=== PATIENT | male | born 1945 | race Caucasian/White ===

== ENCOUNTER 2016-07-03 22:01 | Inpatient (IN) | payer MEDICARE ==
[~2016-07-03] VITALS: Ht 170.2 cm; Wt 99.8 kg
[2016-07-03 22:49] LABS: HEMOGLOBIN 13.3 gm/dl (14.0-17.5); RED BLOOD COUNT 4.78 M/UL (4.20-5.50); WHITE BLOOD COUNT 7.1 K/UL (4.5-11.0)
[2016-07-03 23:12] LABS: BUN/CREATININE RATIO 13 (0-10)
[2016-07-04] MEDS ORDERED: ZYRTEC10 MG PO (01:54)
[2016-07-04] MEDS ORDERED: SINGULAIR10 MG PO (01:54)
[2016-07-04] MEDS ORDERED: TIAZAC240 MG PO (01:54)
[2016-07-04] MEDS ORDERED: VALSARTAN-HCTZ1 EAC2 PO (01:55)
[2016-07-04] MEDS ORDERED: CATAPRES 0.1MG0.1 MG PO (01:55)
[2016-07-04] MEDS ORDERED: CIALIS5 MG PO (01:56)
[2016-07-04] MEDS ORDERED: METFORMIN HCL1000 MG PO (01:58)
[2016-07-04] MEDS ORDERED: PRILOSEC OTC20 MG PO (01:59)
[2016-07-04] MEDS ORDERED: ASPIRIN325 MG PO (02:00)
[2016-07-04] MEDS ORDERED: ALPRAZOLAM0.5 MG PO (02:00)
[2016-07-04] MEDS ORDERED: HYDROCODON-ACE1 EAC4 PO (02:01)
[2016-07-04] MEDS ORDERED: TRANDATE 200 M200 MG PO (16:51)
== END 2016-07-04 19:00 | disposition home or self-care (01) | DRG 305 ==
LOC: ER1 22:01 → M/S 23:50 → ZEROF 23:50 → M/S 07-04 01:38
PROVIDERS: Emergency Medicine; ADMIT Internal Medicine
DX: I16.0 Hypertensive urgency (principal); I10 Essential (primary) hypertension; E66.9 Obesity, unspecified; F41.9 Anxiety disorder, unspecified; N40.0 Benign prostatic hyperplasia without lower urinary tract symptoms; J30.2 Other seasonal allergic rhinitis; G89.29 Other chronic pain; M25.569 Pain in unspecified knee; R07.89 Other chest pain; Z82.49 Family history of ischemic heart disease and other diseases of the circulatory system; Z79.82 Long term (current) use of aspirin; Z79.84 Long term (current) use of oral hypoglycemic drugs; Z79.899 Other long term (current) drug therapy; R00.0 Tachycardia, unspecified; Z96.659 Presence of unspecified artificial knee joint; D64.9 Anemia, unspecified; E11.65 Type 2 diabetes mellitus with hyperglycemia
CPT/HCPCS: ECHO; 36415; 71020; 78452; 80053; 80061; 81001; 82962; 83036; 83690; 83735; 83880; 84484; 85025; 85379; 87086; 93005; 93017; 93306; 99285; A9502; J1650; J2785

== ENCOUNTER 2020-03-17 20:03 | Emergency (ER) | payer MEDICARE ==
[~2020-03-17 20:03] MED LIST: ALPRAZOLAM0.5 MG PO; ASPIRIN325 MG PO; CATAPRES 0.1MG0.1 MG PO; CIALIS5 MG PO; HYDROCODON-ACE1 EAC4 PO; METFORMIN HCL1000 MG PO; PRILOSEC OTC20 MG PO; SINGULAIR10 MG PO; TIAZAC240 MG PO; TRANDATE 200 M200 MG PO; VALSARTAN-HCTZ1 EAC2 PO; ZYRTEC10 MG PO
[2020-03-17 20:59] LABS: HEMOGLOBIN 14.2 gm/dl (14.0-17.5); RED BLOOD COUNT 4.92 M/UL (4.20-5.50); WHITE BLOOD COUNT 7.5 K/UL (4.5-11.0)
[2020-03-17 21:16] LABS: BUN/CREATININE RATIO 17 (0-10)
== END 2020-03-17 23:00 | disposition home or self-care (01) ==
LOC: ER1 20:03
PROVIDERS: Emergency Medicine
DX: N20.0 Calculus of kidney (principal); I10 Essential (primary) hypertension; E11.9 Type 2 diabetes mellitus without complications; Z87.442 Personal history of urinary calculi
CPT/HCPCS: 36415; 80053; 81001; 83690; 85025; 99284